=== PATIENT | male | born 1940 | race Caucasian/White ===

== ENCOUNTER 2017-01-05 18:18 | Inpatient (IN) | payer OTHER, MEDICARE ==
[~2017-01-05] VITALS: Ht 172.7 cm; Wt 69.0 kg
[2017-01-05 18:54] LABS: CALCIUM 8.4 mg/dL (8.5-10.1); CARBON DIOXIDE 25.8 mmol/L (21-32); CHLORIDE SERUM 99 mmol/L (98-107); CREATININE SERUM 1.4 mg/dL (0.7-1.3); GLUCOSE SERUM 179 mg/dL (74-106); POTASSIUM SERUM 4.2 mmol/L (3.5-5.1); SODIUM SERUM 133 mmol/L (136-145)
[2017-01-05 18:57] LABS: BASOPHIL % 0.3 % (0-2); RED CELL DISTRIBUTION WIDTH 13.3 % (11.5-14.5)
[2017-01-05 18:58] LABS: PLATELET COUNT 127 x10^3mcL (130-400)
[2017-01-05 19:18] LABS: ALBUMIN 3.5 g/dL (3.4-5.0); ALKALINE PHOSPHATASE 62 U/L (46-116); ALT/SGPT 38 U/L (16-63); AST/SGOT 34 U/L (15-37); BILIRUBIN TOTAL 0.6 mg/dL (0.20-1.00); TOTAL PROTEIN, SERUM 6.7 g/dL (6.4-8.2)
[2017-01-05] MEDS ORDERED: METOPROLOL TART25 M1 PO (20:03)
[2017-01-05] MEDS ORDERED: SYNTHROID25 MCG PO (20:04)
[2017-01-05] MEDS ORDERED: ONGLYZA5 M1 PO (20:04)
[2017-01-05] MEDS ORDERED: COLACE100 MG PO (20:05)
[2017-01-05] MEDS ORDERED: HYDROMORPHONE2 M1 PO (20:06)
[2017-01-05] MEDS ORDERED: ZOFRAN8 MG PO (20:06)
[2017-01-05] MEDS ORDERED: LINZESS PO (20:08)
[2017-01-05] MEDS ORDERED: XANAX0.5 MG PO (20:09)
[2017-01-05] MEDS ORDERED: OXYC PO (20:10)
[2017-01-05] MEDS ORDERED: ZETIA10 M1 PO (20:10)
[2017-01-05] MEDS ORDERED: LANTUS SOLOS100 U/M1 SQ (20:11)
[2017-01-05] MEDS ORDERED: SEROQUEL50 M1 PO (20:11)
[2017-01-05] MEDS ORDERED: PANTOPRAZOLE SO40 M1 PO (20:11)
[2017-01-05 22:52] LABS: MAGNESIUM 2.3 mg/dL (1.8-2.4); PHOSPHOROUS 2.9 mg/dL (2.5-4.9)
[2017-01-05 22:53] LABS: CHOLESTEROL/HDL RATIO 2.2
[2017-01-05 22:59] LABS: FREE T4 0.58 ng/dL (0.76-1.46)
[2017-01-05 23:00] LABS: FREE THYROXINE INDEX 0.9 ug/dL (1.4-4.5); T4(THYROXINE) 2.7 ug/dL (4.7-13.3)
[2017-01-05 23:28] VITALS: BP 112/80
[2017-01-05] MEDS ORDERED: TOPROL XL25 MG PO (23:29)
[2017-01-06 00:48] LABS: UA SPECIFIC GRAVITY 1.015 (1.005-1.035); microscopic required? YES; urine erythrocyte NEGATIVE (NEGATIVE)
[2017-01-06 01:00] LABS: AMPHETAMINE QUAL UR NONE DETECTED (NEG <=1000)
[2017-01-06 01:01] LABS: T3 TOTAL 0.53 ng/mL
[2017-01-06 03:34] LABS: BASOPHIL % 0.4 % (0-2); RED CELL DISTRIBUTION WIDTH 13.1 % (11.5-14.5)
[2017-01-06 03:36] LABS: PLATELET COUNT 126 x10^3mcL (130-400)
[2017-01-06 03:41] LABS: CALCIUM 7.9 mg/dL (8.5-10.1); CARBON DIOXIDE 24.7 mmol/L (21-32); CHLORIDE SERUM 104 mmol/L (98-107); CREATININE SERUM 1.2 mg/dL (0.7-1.3); GLUCOSE SERUM 167 mg/dL (74-106); MAGNESIUM 2.2 mg/dL (1.8-2.4); PHOSPHOROUS 2.5 mg/dL (2.5-4.9); POTASSIUM SERUM 3.9 mmol/L (3.5-5.1); SODIUM SERUM 138 mmol/L (136-145)
[2017-01-06 06:09] VITALS: BP 136/73
[2017-01-06 08:31] VITALS: Ht 172.7 cm; Wt 69.0 kg
[2017-01-06 10:02] VITALS: BP 124/69
[2017-01-06 14:02] VITALS: BP 89/50
[2017-01-06 18:04] VITALS: BP 81/50
[2017-01-06 21:09] VITALS: BP 110/53
[2017-01-07 06:09] VITALS: BP 114/69
[2017-01-07 06:23] LABS: BASOPHIL % 0.2 % (0-2); RED CELL DISTRIBUTION WIDTH 13.2 % (11.5-14.5)
[2017-01-07 06:24] LABS: CALCIUM 7.7 mg/dL (8.5-10.1); CARBON DIOXIDE 22.1 mmol/L (21-32); CHLORIDE SERUM 103 mmol/L (98-107); CREATININE SERUM 1.3 mg/dL (0.7-1.3); GLUCOSE SERUM 168 mg/dL (74-106); POTASSIUM SERUM 4.8 mmol/L (3.5-5.1); SODIUM SERUM 134 mmol/L (136-145)
[2017-01-07 06:43] LABS: PLATELET COUNT 113 x10^3mcL (130-400)
[2017-01-07 09:15] VITALS: BP 101/57
[2017-01-07] MEDS ORDERED: SYNTHROID25 MCG PO (09:45)
[2017-01-07] MEDS ORDERED: LANTUS SOLOS100 U/M1 SQ (09:45)
[2017-01-07 12:59] VITALS: BP 101/57
== END 2017-01-07 14:07 | disposition home or self-care (01) | DRG 542 ==
LOC: ED 18:18 → DU 22:06
PROVIDERS: ADMIT Family Medicine
DX: C79.51 Secondary malignant neoplasm of bone (principal); N17.0 Acute kidney failure with tubular necrosis; C34.90 Malignant neoplasm of unspecified part of unspecified bronchus or lung; D68.69 Other thrombophilia; E87.1 Hypo-osmolality and hyponatremia; Z87.891 Personal history of nicotine dependence; E11.65 Type 2 diabetes mellitus with hyperglycemia; E11.59 Type 2 diabetes mellitus with other circulatory complications; D64.9 Anemia, unspecified; D69.6 Thrombocytopenia, unspecified; F12.10 Cannabis abuse, uncomplicated; Z68.23 Body mass index [BMI] 23.0-23.9, adult; Z96.651 Presence of right artificial knee joint; Z79.891 Long term (current) use of opiate analgesic; Z79.4 Long term (current) use of insulin
CPT/HCPCS: 82962; 83880; 84439; 94150; J1170; J1815; J2270; J2405; J7030; J7620; Q0092